=== PATIENT | female | born 1945 | race Caucasian/White ===

== ENCOUNTER 2016-04-19 12:09 | Emergency (ER) | payer MEDICARE ==
[2016-04-19 12:10] VITALS: BP 175/99; PULSE 77; RESP 12; TEMP 98.1; O2SAT 96
[2016-04-19] MEDS ORDERED: SODIUM CHLOR 0.9% 1000 ML INJ 1,000 ML IV SCH (14:16)
--- NOTE | 2016-04-19 14:18 | PD ---
HPI Chief Complaint: Abdominal Pain Time Seen by Provider: 14:18 Travel History International Travel<30 days: No Contact w/Intl Traveler<30days: No Traveled to known affect area: No History of Present Illness HPI 71-year-old female with a history of hypertension and hyperlipidemia presents to the emergency department for evaluation of left lower quadrant abdominal pain. The patient states that she initially had a mild left lower quadrant abdominal pain intermittently for 5 weeks. States that over the past week she has had developed severe sharp left lower quadrant abdominal pain that is constant. States over the past week she has also had night sweats and nausea. Denies any fever, diarrhea, constipation, bloody stool, vomiting, chest pain, shortness of breath, dysuria, hematuria, burning with urination. Prior abdominal surgeries include cholecystectomy and hysterectomy with one oophorectomy. States she has had diverticulitis once in the past about 20 years ago. Patient states that she is here visiting from [place] which is where her PCP is located. No other complaints. PFSH Past Medical History High Cholesterol: Yes Hypertension: Yes ?: Not Social History Alcohol Use: No Tobacco Use: No Allergies-Medications (Allergen,Severity, Reaction): Coded Allergies: No Known Allergies (Unverified , 04/19/16) Reported Meds & Prescriptions Reported Meds & Active Scripts Active Reported Zocor (Simvastatin) 20 Mg Tab Unknown Dose PO DAILY Lisinopril 5 Mg Tab Unknown Dose PO DAILY Review of Systems Except as stated in HPI: all other systems reviewed are Neg Physical Exam Narrative GENERAL: Well-nourished and well-developed pleasant female patient in moderate amount of pain but no acute distress. SKIN: Warm and dry. HEAD: Normocephalic and atraumatic. EYES: No injection, drainage, or hyphema noted. PERRLA. EOMI. ENT: No nasal drainage noted. Oropharynx is clear. NECK: Supple and the trachea is midline. CARDIOVASCULAR: Regular rate and rhythm. RESPIRATORY: Breath sounds are equal bilaterally with no accessory muscle use, wheezing, rhonchi, or crackles. GASTROINTESTINAL: Left lower quadrant tenderness to palpation with guarding. Abdomen is soft and nondistended. MUSCULOSKELETAL: No obvious deformities, swelling, cyanosis, or ecchymosis is present throughout the upper and lower extremities. Patient has full range of motion without any signs of neurovascular compromise. NEUROLOGICAL: Awake, alert, and oriented. Normal speech and gait. Cranial nerves are grossly intact. Data Data Last Documented VS Vital Signs Date Time Temp Pulse Resp B/P Pulse Ox O2 Delivery O2 Flow Rate FiO2 04/19/16 12:10 98.1 77 12 175/99 96 Room Air Orders Complete Blood Count With Diff (04/19/16 14:16) Comprehensive Metabolic Panel (04/19/16 14:16) Lipase (04/19/16 14:16) Prothrombin Time / Inr (Pt) (04/19/16 14:16) Act Partial Throm Time (Ptt) (04/19/16 14:16) Urinalysis - C+S If Indicated (04/19/16 14:16) Ct Abd/Pel W Iv Contrast(Rout) (04/19/16 14:16) Iv Access Insert/Monitor (04/19/16 14:16) Ecg Monitoring (04/19/16 14:16) Oximetry (04/19/16 14:16) NPO (04/19/16 14:16) Morphine Inj (Morphine Inj) (04/19/16 14:30) Ondansetron Inj (Zofran Inj) (04/19/16 14:30) Sodium Chlor 0.9% 1000 Ml Inj (Ns 1000 M (04/19/16 14:16) Sodium Chloride 0.9% Flush (Ns Flush) (04/19/16 14:30) Electrocardiogram (04/19/16 14:16) Chest, Single Ap (04/19/16 14:16) MDM Medical Decision Making Medical Screen Exam Complete: Yes Emergency Medical Condition: Yes Differential Diagnosis Diverticulitis versus colitis versus urinary tract infection versus pyelonephritis versus nephrolithiasis versus other Narrative Course 71-year-old female presents to the emergency department for evaluation of left lower quadrant abdominal pain. Patient is afebrile, vital signs are stable. IV access obtained, labs have been drawn and sent. Patient is given morphine 4 mg IV and Zofran 4 mg IV as well as a liter of fluid. CT of the abdomen and pelvis with IV contrast has been ordered and is pending. Initial laboratory and imaging studies have been ordered and the patient will be evaluated by another provider when a medical bed becomes available. The triage nurse is aware of the plan. The proposed plan of evaluation and treatment was discussed with the patient who verbalizes an understanding and agrees to proceed. Yasmine Arevalo Apr 19, 2016 14:18
[2016-04-19] MEDS ORDERED: SODIUM CHLORIDE 0.9% FLUSH 5 ML FLUSH IVF PRN (14:30)
[2016-04-19] MEDS ORDERED: MORPHINE SULFATE 4 MG/ML INJ IV PUSH ONE (14:30)
[2016-04-19] MEDS ORDERED: ONDANSETRON HCL 4 MG/2 ML VIAL IVP ONE (14:30)
[2016-04-19] MEDS ORDERED: LISI-519 PO (14:35)
[2016-04-19] MEDS ORDERED: ZOCO20TA PO (14:35)
--- NOTE | 2016-04-19 14:47 | PD ---
Physical Exam Date Seen by Provider: Apr 19, 2016 Time Seen by Provider: 15:52 Narrative 71-year-old female came to the emergency room with history of left lower quadrant pain that's been going on for past few days. Now she's getting some fever and chills as well. Last night she broke into a cold sweat. No history of nausea vomiting. She has history of diverticulosis and diverticulitis in the past. Patient was seen by the PA in the triage and let test and CAT scan was ordered. Patient has left lower quadrant tenderness. Awaiting for the CAT scan to be done and resulted. Blood test results came back and looks to be within acceptable limit. Patient does have a UTI. I'll give her a dose of by mouth ciprofloxacin. Data Data Last Documented VS Vital Signs Date Time Temp Pulse Resp B/P Pulse Ox O2 Delivery O2 Flow Rate FiO2 04/19/16 18:13 67 18 165/72 99 04/19/16 12:10 98.1 Room Air Orders Complete Blood Count With Diff (04/19/16 14:16) Comprehensive Metabolic Panel (04/19/16 14:16) Lipase (04/19/16 14:16) Prothrombin Time / Inr (Pt) (04/19/16 14:16) Act Partial Throm Time (Ptt) (04/19/16 14:16) Urinalysis - C+S If Indicated (04/19/16 14:16) Ct Abd/Pel W Iv Contrast(Rout) (04/19/16 14:16) Iv Access Insert/Monitor (04/19/16 14:16) Ecg Monitoring (04/19/16 14:16) Oximetry (04/19/16 14:16) NPO (04/19/16 14:16) Morphine Inj (Morphine Inj) (04/19/16 14:30) Ondansetron Inj (Zofran Inj) (04/19/16 14:30) Sodium Chlor 0.9% 1000 Ml Inj (Ns 1000 M (04/19/16 14:16) Sodium Chloride 0.9% Flush (Ns Flush) (04/19/16 14:30) Electrocardiogram (04/19/16 14:16) Chest, Single Ap (04/19/16 14:16) Urine Culture (04/19/16 14:35) Ciprofloxacin (Cipro) (04/19/16 16:00) Metronidazole (Flagyl) (04/19/16 16:00) Iohexol 350 Inj (Omnipaque 350 Inj) (04/19/16 16:11) Labs Laboratory Tests Test 04/19/16 04/19/16 14:35 15:00 Sodium Level 140 MEQ/L Potassium Level 3.8 MEQ/L Chloride Level 103 MEQ/L Carbon Dioxide Level 28.8 MEQ/L Anion Gap 8 MEQ/L Blood Urea Nitrogen 19 MG/DL Creatinine 0.97 MG/DL Estimat Glomerular Filtration 57 ML/MIN Rate Random Glucose 72 MG/DL Calcium Level 9.5 MG/DL Total Bilirubin 0.4 MG/DL Aspartate Amino Transf 15 U/L (AST/SGOT) Alanine Aminotransferase 17 U/L (ALT/SGPT) Alkaline Phosphatase 132 U/L Total Protein 8.1 GM/DL Albumin 4.4 GM/DL Lipase 131 U/L White Blood Count 9.4 TH/MM3 Red Blood Count 4.60 MIL/MM3 Hemoglobin 12.0 GM/DL Hematocrit 36.4 % Mean Corpuscular Volume 79.0 FL Mean Corpuscular Hemoglobin 26.2 PG Mean Corpuscular Hemoglobin 33.1 % Concent Red Cell Distribution Width 15.1 % Platelet Count 328 TH/MM3 Mean Platelet Volume 7.8 FL Neutrophils (%) (Auto) 55.9 % Lymphocytes (%) (Auto) 35.8 % Monocytes (%) (Auto) 6.8 % Eosinophils (%) (Auto) 1.2 % Basophils (%) (Auto) 0.3 % Neutrophils # (Auto) 5.2 TH/MM3 Lymphocytes # (Auto) 3.4 TH/MM3 Monocytes # (Auto) 0.6 TH/MM3 Eosinophils # (Auto) 0.1 TH/MM3 Basophils # (Auto) 0.0 TH/MM3 CBC Comment DIFF FINAL Differential Comment Urine Color YELLOW Urine Turbidity CLEAR Urine pH 6.5 Urine Specific [place] 1.009 Urine Protein NEG mg/dL Urine Glucose (UA) NEG mg/dL Urine Ketones NEG mg/dL Urine Occult Blood NEG Urine Nitrite NEG Urine Bilirubin NEG Urine Urobilinogen LESS THAN 2.0 MG/DL Urine Leukocyte Esterase LARGE Urine RBC 1 /hpf Urine WBC 26 /hpf Urine Squamous Epithelial 1 /hpf Cells Urine Bacteria MOD /hpf Microscopic Urinalysis Comment CULTURE INDICATED Prothrombin Time 10.5 SEC Prothromb Time International 1.0 RATIO Ratio Activated Partial 27.4 SEC Thromboplast Time [facility] Supervised Visit with ANN: Yes Interpretation(s) Twelve-lead EKG was reviewed by me. Normal sinus rhythm, normal axis, nonspecific ST-T wave changes. It of 70 bpm. Narrative Course 5:[address] scan was negative for diverticulitis. I will discharge the patient home with diagnosis of UTI and prescription. Diagnosis Primary Impression: Abdominal pain Qualified Code: R10.32 - Left lower quadrant pain Additional Impression: UTI (urinary tract infection) Qualified Code: N39.0 - Urinary tract infection without hematuria, site unspecified Referrals: Primary Care Physician 2 days Additional Instruction: Please return to the ER if the condition worsens or any other new concerns. Otherwise take the medication as per the prescription direction and follow-up with your primary care in couple days. Lots of fluid and cranberry juice. Med/Other Pt SpecificInfo: Prescription(s) given Scripts Nitrofurantoin Monohydrate Macrocrystals (Macrobid)100 Mg [id number] Mg PO BID 10 Days Ref 0 Prov:aTy Briseno MD 04/20/16 Disposition: 01 DISCHARGE HOME Condition: Stable Sarah Monet MD Apr 19, 2016 14:47
[2016-04-19 15:00] VITALS: O2SAT 99
--- NOTE | 2016-04-19 15:00 | RADRPT ---
EXAM DATE/TIME: 04/19/2016 14:40 [facility] COMPARISON: No previous studies available for comparison. INDICATIONS: Chest and abdominal pain. MEDICAL HISTORY: None. SURGICAL HISTORY: None. ENCOUNTER: Initial ACUITY: 1 day PAIN SCORE: 10/10 LOCATION: Upper quadrant abdomen. FINDINGS: The heart is enlarged. The pulmonary vascularity pattern is normal. The lungs are clear. CONCLUSION: 1. Cardiomegaly. 2. No acute focal pulmonary infiltrate or pulmonary vascular congestion. Tom Castañeda MD on April 19, 2016 at 14:50 Board Certified Radiologist. This report was verified electronically.
[2016-04-19 15:23] LABS: AUTOMATED NEUTROPHIL # 5.2 TH/MM3 (1.8-7.7); BASOPHIL % 0.3 % (0.0-2.0); EOSINOPHIL # 0.1 TH/MM3 (0-0.4); EOSINOPHIL % 1.2 % (0.0-4.0); HEMATOCRIT 36.4 % (35.0-46.0); HEMO FLAGS DIFF FINAL; LYMPH % 35.8 % (9.0-44.0); LYMPHOCYTE # 3.4 TH/MM3 (1.0-4.8); MEAN CORPUSCULAR HEMOGLOBIN 26.2 PG (27.0-34.0); MEAN CORPUSCULAR HGB CONC 33.1 % (32.0-36.0); MONO % 6.8 % (0.0-8.0); NEUT % 55.9 % (16.0-70.0); PLATELET COUNT 328 TH/MM3 (150-450); RED CELL DISTRIBUTION WIDTH 15.1 % (11.6-17.2); WHITE BLOOD COUNT 9.4 TH/MM3 (4.0-11.0)
[2016-04-19 15:30] LABS: BACTERIA, URINE MOD /hpf; BLOOD, URINE NEG (NEG); COMMENT (UR) CULTURE INDICATED; CULTURE IF INDICATED CULTURE INDICATED; GLUCOSE,URINE NEG (NEG); KETONE, URINE NEG (NEG); NITRITE,URINE NEG (NEG); PH, URINE 6.5 (5.0-8.5); SQUAMOUS EPITHELIAL CELL URINE 1 /hpf (0-5); URINE COLOR YELLOW (YELLW/STRAW)
[2016-04-19 15:39] LABS: APTT (PATIENT) 27.4 SEC (24.3-30.1); PROTHROMBIN TIME - PATIENT 10.5 SEC (9.8-11.6)
[2016-04-19 15:45] LABS: ANION GAP 8 MEQ/L (5-15); AST (GOT) 15 U/L (15-37); BICARBONATE 28.8 MEQ/L (21.0-32.0); BLOOD UREA NITROGEN 19 MG/DL (7-18); CHLORIDE 103 MEQ/L (98-107); GLOMERULAR FILTRATION RATE 57 ML/MIN (>89); POTASSIUM 3.8 MEQ/L (3.5-5.1); SODIUM (NA) 140 MEQ/L (136-145)
[2016-04-19 15:48] LABS: ALKALINE PHOSPHATASE 132 U/L (45-117); ALT (GPT) 17 U/L (10-53); TOTAL BILIRUBIN ADULT 0.4 MG/DL (0.2-1.0)
[2016-04-19] MEDS ORDERED: CIPROFLOXACIN 500 MG TAB PO ONE (16:00)
[2016-04-19] MEDS ORDERED: metroNIDAZOLE 500 MG TAB PO ONE (16:00)
[2016-04-19] MEDS ORDERED: IOHEXOL 350 MG/ML 10 ML VIAL (for RAD DIAG) IV ONE (16:11)
--- NOTE | 2016-04-19 16:34 | RADRPT ---
EXAM DATE/TIME: 04/19/2016 16:11 [facility] COMPARISON: No previous studies available for comparison. INDICATIONS : Left lower quadrant pain with nausea. IV CONTRAST: 96 cc Omnipaque 350 (iohexol) IV ORAL CONTRAST: No oral contrast ingested. RADIATION DOSE: 16.19 CTDIvol (mGy) MEDICAL HISTORY : None SURGICAL HISTORY : None. ENCOUNTER: Initial ACUITY: 1 month PAIN SCALE: 5/10 LOCATION: Left lower quadrant TECHNIQUE: Volumetric scanning of the abdomen and pelvis was performed. Using automated exposure control and ad justment of the mA and/or kV according to patient size, radiation dose was kept as low as reasonably achievable to obtain optimal diagnostic quality images. FINDINGS: LOWER LUNGS: The visualized lower lungs are clear. LIVER: Homogeneous density without lesion. There is no dilation of the biliary tree. Patient is status post prior cholecystectomy. SPLEEN: Normal size without lesion. PANCREAS: Within normal limits. KIDNEYS: Normal in size and shape. There is no mass, stone or hydronephrosis. ADRENAL GLANDS: Within normal limits. VASCULAR: There is no aortic aneurysm. BOWEL/MESENTERY: The stomach, small bowel, and colon demonstrate no acute abnormality. There is no free intraperitone al air or fluid. Extensive diverticuli are identified throughout the sigmoid colon without evidence o f adjacent wall thickening or inflammatory change. ABDOMINAL WALL: Within normal limits. RETROPERITONEUM: There is no lymphadenopathy. BLADDER: No wall thickening or mass. REPRODUCTIVE: Status post prior hysterectomy. INGUINAL: There is no lymphadenopathy or hernia. MUSCULOSKELETAL: Within normal limits for patient age. CONCLUSION: Diverticulosis without evidence of diverticulitis. Otherwise unremarkable exam.. Faye Trinidad MD on April 19, 2016 at 16:31 Board Certified Radiologist. This report was verified electronically.
[2016-04-19] MEDS ORDERED: MACR100C2 PO (17:46)
[2016-04-19 18:13] VITALS: BP 165/72
[2016-04-20] MEDS ORDERED: MACR100C2 PO (08:42)
--- NOTE | 2016-04-20 08:42 | PD ---
Data Data Last Documented VS Vital Signs Date Time Temp Pulse Resp B/P Pulse Ox O2 Delivery O2 Flow Rate FiO2 04/19/16 18:13 67 18 165/72 99 04/19/16 12:10 98.1 Room Air Orders Complete Blood Count With Diff (04/19/16 14:16) Comprehensive Metabolic Panel (04/19/16 14:16) Lipase (04/19/16 14:16) Prothrombin Time / Inr (Pt) (04/19/16 14:16) Act Partial Throm Time (Ptt) (04/19/16 14:16) Urinalysis - C+S If Indicated (04/19/16 14:16) Ct Abd/Pel W Iv Contrast(Rout) (04/19/16 14:16) Iv Access Insert/Monitor (04/19/16 14:16) Ecg Monitoring (04/19/16 14:16) Oximetry (04/19/16 14:16) NPO (04/19/16 14:16) Morphine Inj (Morphine Inj) (04/19/16 14:30) Ondansetron Inj (Zofran Inj) (04/19/16 14:30) Sodium Chlor 0.9% 1000 Ml Inj (Ns 1000 M (04/19/16 14:16) Sodium Chloride 0.9% Flush (Ns Flush) (04/19/16 14:30) Electrocardiogram (04/19/16 14:16) Chest, Single Ap (04/19/16 14:16) Urine Culture (04/19/16 14:35) Ciprofloxacin (Cipro) (04/19/16 16:00) Metronidazole (Flagyl) (04/19/16 16:00) Labs Laboratory Tests Test 04/19/16 04/19/16 14:35 15:00 White Blood Count 9.4 TH/MM3 Red Blood Count 4.60 MIL/MM3 Hemoglobin 12.0 GM/DL Hematocrit 36.4 % Mean Corpuscular Volume 79.0 FL Mean Corpuscular Hemoglobin 26.2 PG Mean Corpuscular Hemoglobin 33.1 % Concent Red Cell Distribution Width 15.1 % Platelet Count 328 TH/MM3 Mean Platelet Volume 7.8 FL Neutrophils (%) (Auto) 55.9 % Lymphocytes (%) (Auto) 35.8 % Monocytes (%) (Auto) 6.8 % Eosinophils (%) (Auto) 1.2 % Basophils (%) (Auto) 0.3 % Neutrophils # (Auto) 5.2 TH/MM3 Lymphocytes # (Auto) 3.4 TH/MM3 Monocytes # (Auto) 0.6 TH/MM3 Eosinophils # (Auto) 0.1 TH/MM3 Basophils # (Auto) 0.0 TH/MM3 CBC Comment DIFF FINAL Differential Comment Urine Color YELLOW Urine Turbidity CLEAR Urine pH 6.5 Urine Specific [place] 1.009 Urine Protein NEG mg/dL Urine Glucose (UA) NEG mg/dL Urine Ketones NEG mg/dL Urine Occult Blood NEG Urine Nitrite NEG Urine Bilirubin NEG Urine Urobilinogen LESS THAN 2.0 MG/DL Urine Leukocyte Esterase LARGE Urine RBC 1 /hpf Urine WBC 26 /hpf Urine Squamous Epithelial 1 /hpf Cells Urine Bacteria MOD /hpf Microscopic Urinalysis Comment CULTURE INDICATED Sodium Level 140 MEQ/L Potassium Level 3.8 MEQ/L Chloride Level 103 MEQ/L Carbon Dioxide Level 28.8 MEQ/L Anion Gap 8 MEQ/L Blood Urea Nitrogen 19 MG/DL Creatinine 0.97 MG/DL Estimat Glomerular Filtration 57 ML/MIN Rate Random Glucose 72 MG/DL Calcium Level 9.5 MG/DL Total Bilirubin 0.4 MG/DL Aspartate Amino Transf 15 U/L (AST/SGOT) Alanine Aminotransferase 17 U/L (ALT/SGPT) Alkaline Phosphatase 132 U/L Total Protein 8.1 GM/DL Albumin 4.4 GM/DL Lipase 131 U/L Prothrombin Time 10.5 SEC Prothromb Time International 1.0 RATIO Ratio Activated Partial 27.4 SEC Thromboplast Time M[facility] Supervised Visit with ANN: No Narrative Course patient lost prescription. It was reprinted. Diagnosis Primary Impression: Abdominal pain Qualified Code: R10.32 - Left lower quadrant pain Additional Impression: UTI (urinary tract infection) Qualified Code: N39.0 - Urinary tract infection without hematuria, site unspecified Referrals: Primary Care Physician 2 days Patient Instructions: General Instructions, Urinary Tract Infection in Women ( ED), Abdominal Pain (ED) Departure Forms: Tests/Procedures Additional Instruction: Please return to the ER if the condition worsens or any other new concerns. Otherwise take the medication as per the prescription direction and follow-up with your primary care in couple days. Lots of fluid and cranberry juice. Scripts Nitrofurantoin Monohydrate Macrocrystals (Macrobid)100 Mg [id number] Mg PO BID 10 Days Ref 0 Prov:Tay Briseno MD 04/20/16 Disposition: 01 DISCHARGE HOME Condition: Stable Tay Briseno MD Apr 20, 2016 08:42
--- NOTE | 2016-04-20 22:43 | EKG ---
Date Performed: 04/19/2016 Time Performed: 15:27:52 PTAGE: 71 years EKG: Sinus rhythm NORMAL ECG NO PREVIOUS TRACING DOCTOR: Isaac Hdz Interpretating Date/Time 04/20/2016 22:39:14
== END 2016-04-19 18:22 | disposition home or self-care (01) ==
LOC: NEPC 12:09
DX: N39.0 Urinary tract infection, site not specified (principal); E78.00 Pure hypercholesterolemia, unspecified; I10 Essential (primary) hypertension; B96.89 Other specified bacterial agents as the cause of diseases classified elsewhere
CPT/HCPCS: 71010; 74177; 80053; 81001; 83690; 85025; 85610; 85730; 87077; 87086; 87186; 93005; 96361; 96374; 96375; 99284; J2270; J2405; J7030; Q9967

== ENCOUNTER 2017-05-15 16:41 | Emergency (ER) | payer MEDICARE ==
[~2017-05-15 16:41] MED LIST: LISI-519 PO; MACR100C2 PO; ZOCO20TA PO
[2017-05-15 16:42] VITALS: BP 161/70; PULSE 81; RESP 18; TEMP 97.8; O2SAT 99
--- NOTE | 2017-05-15 18:58 | PD ---
HPI Chief Complaint: Laceration/Skin Injury Time Seen by Provider: 16:46 Travel History International Travel<30 days: No Contact w/Intl Traveler<30days: No Traveled to known affect area: No History of Present Illness HPI 72-year-old female presents to emergency department for laceration sustained to her left third digit while cutting an onion this evening. This is with a kitchen knife. Patient reports pain at the site and difficulty getting it to stop bleeding. Is uncertain of her tetanus status. Denies any alterations in sensation. No limitations range of motion. PFSH Past Medical History High Cholesterol: Yes Hypertension: Yes Social History Alcohol Use: No Tobacco Use: No Substance Use: Yes Allergies-Medications (Allergen,Severity, Reaction): Coded Allergies: No Known Allergies (Unverified , 04/19/16) Reported Meds & Prescriptions Reported Meds & Active Scripts Active Macrobid (Nitrofurantoin Monoh/Nitrofur Macro) 100 Mg Cap 100 Mg PO BID 10 Days Reported Zocor (Simvastatin) 20 Mg Tab Unknown Dose PO DAILY Lisinopril 5 Mg Tab Unknown Dose PO DAILY Review of Systems Except as stated in HPI: all other systems reviewed are Neg Physical Exam Narrative This is a well-appearing elderly female patient, ambulatory and in no acute distress. There is a 1 cm laceration, bleeding on the left third digit. The digit is neurovascularly intact. Patient fully flex and extend the affected digit. Data Data Last Documented VS Vital Signs Date Time Temp Pulse Resp B/P (MAP) Pulse Ox O2 Delivery O2 Flow Rate FiO2 2//18 16:42 97.8 81 18 161/70 (100) 99 MDM Medical Decision Making Medical Screen Exam Complete: Yes Emergency Medical Condition: Yes Medical Record Reviewed: Yes Differential Diagnosis Laceration superficial versus deep versus abrasion versus avulsion Narrative Course 72-year-old female presents emergency department for laceration to her left third digit. Patient appears without distress. I seen and evaluated her in triage and patient is now awaiting bed placement. Prior to this, the patient chooses to leave. AMA: The risks of leaving against medical advice without further evaluation treatment were discussed with the patient. These risks include cardiac dysfunction, cardiac dysrhythmia, possible heart attack, possible stroke or . The patient indicated understanding of these risks and appeared to have the capacity to make this decision. Diagnosis Primary Impression: Finger laceration Disposition: 07 AGAINST MEDICAL ADVICE Condition: Stable Leal,Jillian [employer] ADJUSTER May 15, 2017 18:58
== END 2017-05-15 18:57 | disposition left against medical advice (07) ==
LOC: NED 16:41
DX: S61.213A Laceration without foreign body of left middle finger without damage to nail, initial encounter (principal); E78.00 Pure hypercholesterolemia, unspecified; I10 Essential (primary) hypertension; W26.0XXA Contact with knife, initial encounter; Y93.G1 Activity, food preparation and clean up
CPT/HCPCS: 99281